=== PATIENT | female | born 1945 | race Caucasian/White ===

== ENCOUNTER → 2021-03-01 10:42 | Outpatient (CLI) | payer MEDICARE, OTHER ==
[2020-08-30 13:54] VITALS: BMI 25.0
[~2021-03-01 10:42] MED LIST: ASPIRIN325 MG PO; DEXAMETHASONE2 MG PO; FISH OIL 1,0001 CA1 PO; FLUTICASONE PRO16 GM NASAL; KEPPRA500 MG PO; MELATONIN 3 MG1 TAB PO; MUCINEX600 MG PO; OS-CAL500 MG PO; PRAVACHOL20 MG PO; PROAIR HFA8.5 G1 PO; SYMBICORT 80-10.2 GM INH; TIMOPTIC 0.25% O5 M1 EACH EYE; TRAZODONE HCL50 MG PO; VITAMIN C PO; VITAMIN D1000 UNI2 PO; XALATAN 0.0052.5 ML EACH EYE
== END | disposition home or self-care (01) ==
LOC: D.LAB 10:38
PROVIDERS: ATTEND Internal Medicine Pulmonary Disease
DX: J44.9 Chronic obstructive pulmonary disease, unspecified (principal); Z11.52 Encounter for screening for COVID-19

== ENCOUNTER → 2021-03-06 07:30 | Outpatient (CLI) | payer MEDICARE, OTHER ==
[2020-08-30 13:54] VITALS: BMI 25.0
== END | disposition home or self-care (01) ==
LOC: D.RT 01-22 13:00 → D.RAD 01-22 14:00 → D.RT 07:30
PROVIDERS: ATTEND Internal Medicine Pulmonary Disease
DX: J44.9 Chronic obstructive pulmonary disease, unspecified (principal)